=== PATIENT | male | born 1965 | race Caucasian/White ===

== ENCOUNTER 2017-07-21 05:39 | Emergency (ER) | payer BC ==
[2017-07-21] MEDS: morphine 4 MG/ML VIAL IV (05:50)
[2017-07-21] MEDS: ONDANSETRON 4 MG INJ IV (05:50)
[2017-07-21 06:53] LABS: ADD MAN DIFF? NO
[2017-07-21 06:56] LABS: BASOPHILS % 0.2 % (0.0-2.0); EOSINOPHILS # 0.1 10^3/ul (0.0-0.5); EOSINOPHILS % 0.8 % (0.0-7.0); HEMATOCRIT 39.3 % (42.0-52.0); HEMOGLOBIN 13.7 g/dl (14.0-18.0); LYMPHOCYTES # 0.7 10^3/ul (0.8-2.9); LYMPHOCYTES % 8.2 % (15.0-51.0); MEAN CORPUSCULAR HEMOGLOBIN 31.6 pg (29.0-33.0); MEAN CORPUSCULAR HGB CONC 34.9 g/dl (32.0-37.0); MEAN CORPUSCULAR VOLUME 90.6 fl (82.0-101.0); MEAN PLATELET VOLUME 10.2 fl (7.4-10.4); MONOCYTES % 11.1 % (0.0-11.0); NEUTROPHIL # 7.1 10^3/ul (1.6-7.5); NEUTROPHILS % 79.5 % (39.0-77.0); PLATELET COUNT 145 10^3/UL (140-415); RED BLOOD COUNT 4.34 10^6/ul (4.70-6.10); RED CELL DISTRIBUTION WIDTH 11.9 % (11.5-14.5)
[2017-07-21 06:56] LABS: WHITE BLOOD COUNT 8.9 10^3/ul (4.8-10.8)
[2017-07-21 06:59] LABS: ADD UMIC YES; UR ASCORBIC ACID NEGATIVE (NEGATIVE); UR BILIRUBIN (Dip) NEGATIVE (NEGATIVE); UR BLOOD (Dip) 1+ mg/dL (NEGATIVE); UR CLARITY CLEAR (CLEAR); UR COLOR YELLOW (YELLOW); UR GLUCOSE (Dip) NEGATIVE (NEGATIVE); UR KETONES (Dip) NEGATIVE (NEGATIVE); UR LEUKOCYTE ESTERASE (Dip) NEGATIVE Leu/ul (NEGATIVE); UR MUCUS FEW /HPF (NONE SEEN); UR NITRITE (Dip) NEGATIVE (NEGATIVE); UR RBC 2 /HPF (0-5); UR SPECIFIC GRAVITY (Dip) 1.025 (1.003-1.030); UR TOTAL PROTEIN (Dip) NEGATIVE (NEGATIVE); UR UROBILINOGEN (Dip) NEGATIVE (NEGATIVE); UR WBC 0 /HPF (0-5)
[2017-07-21 07:13] LABS: ANION GAP 15 (8-16)
[2017-07-21 07:16] LABS: ALANINE AMINOTRANSFERASE 25 IU/L (13-69); ALBUMIN/GLOBULIN RATIO 1.33; ALKALINE PHOSPHATASE 40 IU/L (42-121); ASPARTATE AMINO TRANSFERASE 18 IU/L (15-46); BILIRUBIN,INDIRECT 1.2 mg/dl (0-1.1); BILIRUBIN,TOTAL 1.2 mg/dl (0.2-1.3); BLOOD UREA NITROGEN 15 mg/dl (7-20); CALCIUM 8.8 mg/dl (8.4-10.2); CARBON DIOXIDE 27 mmol/L (21-31); CHLORIDE 104 mmol/L (97-110); CREATININE 0.98 mg/dl (0.61-1.24); GLUCOSE 100 mg/dl (70-220); LIPASE 93 U/L (23-300); POTASSIUM 4.1 mmol/L (3.5-5.1); SODIUM 142 mmol/L (135-144)
[2017-07-21] MEDS ORDERED: metroNIDAZOLE 500 MG TAB PO (07:30)
[2017-07-21] MEDS: CIPROFLOXACIN 500 MG TAB PO (07:49)
== END 2017-07-21 07:50 | disposition home or self-care (01) ==
LOC: E/R 05:39
DX: K57.32 Diverticulitis of large intestine without perforation or abscess without bleeding (principal)
CPT/HCPCS: 36415; 74176; 80053; 81001; 83690; 85025; 96374; 96375; 99285-25

== ENCOUNTER 2017-07-25 12:08 | Emergency (ER) | payer BC ==
[2017-07-25] MEDS: DIPHTH/TET/ACEL PERTUSS (ADULT) 0.5 ML VIAL IM* (12:36)
[2017-07-25] MEDS: LIDOCAINE 1% (MDV) 10 ML INJ INJ (12:36)
== END 2017-07-25 14:05 | disposition home or self-care (01) ==
LOC: FTE 12:08
DX: S61.411A Laceration without foreign body of right hand, initial encounter (principal); X58.XXXA Exposure to other specified factors, initial encounter; Y92.322 Soccer field as the place of occurrence of the external cause; Z23 Encounter for immunization
CPT/HCPCS: 12002; 90471; 90715; 99283-25

== ENCOUNTER → 2018-09-24 | Outpatient (CLI) | payer BC ==
[2018-09-24 11:00] LABS: WHITE BLOOD COUNT 3.7 10^3/ul (4.8-10.8)
[2018-09-24 11:00] LABS: ADD MAN DIFF? NO; BASOPHILS % 1.1 % (0.0-2.0); EOSINOPHILS # 0.2 10^3/ul (0.0-0.5); EOSINOPHILS % 4.1 % (0.0-7.0); HEMATOCRIT 43.6 % (42.0-52.0); HEMOGLOBIN 14.9 g/dl (14.0-18.0); LYMPHOCYTES # 1.1 10^3/ul (0.8-2.9); LYMPHOCYTES % 31.1 % (15.0-51.0); MEAN CORPUSCULAR HEMOGLOBIN 30.4 pg (29.0-33.0); MEAN CORPUSCULAR HGB CONC 34.2 g/dl (32.0-37.0); MONOCYTE # 0.2 10^3/ul (0.3-0.9); MONOCYTES % 6.3 % (0.0-11.0); NEUTROPHIL # 2.1 10^3/ul (1.6-7.5); NEUTROPHILS % 57.1 % (39.0-77.0); PLATELET COUNT 196 10^3/UL (140-415); RED CELL DISTRIBUTION WIDTH 12.1 % (11.5-14.5)
[2018-09-24 11:04] LABS: ADD UMIC YES; UR ASCORBIC ACID NEGATIVE (NEGATIVE); UR BILIRUBIN (Dip) NEGATIVE (NEGATIVE); UR BLOOD (Dip) 1+ mg/dL (NEGATIVE); UR CLARITY CLEAR (CLEAR); UR COLOR YELLOW (YELLOW); UR GLUCOSE (Dip) NEGATIVE (NEGATIVE); UR KETONES (Dip) NEGATIVE (NEGATIVE); UR LEUKOCYTE ESTERASE (Dip) NEGATIVE Leu/ul (NEGATIVE); UR NITRITE (Dip) NEGATIVE (NEGATIVE); UR RBC 1 /HPF (0-5); UR SPECIFIC GRAVITY (Dip) 1.019 (1.003-1.030); UR TOTAL PROTEIN (Dip) NEGATIVE (NEGATIVE); UR UROBILINOGEN (Dip) NEGATIVE (NEGATIVE); UR WBC 0 /HPF (0-5)
[2018-09-24 11:25] LABS: IRON 150 ug/dl (35-150)
[2018-09-24 11:34] LABS: % IRON SATURATION 50 % SAT (22-52); TOTAL IRON BINDING CAPACITY 301 ug/dl (241-421)
[2018-09-24 11:48] LABS: ALANINE AMINOTRANSFERASE 21 IU/L (13-69); ALBUMIN 4.6 g/dl (3.3-4.9); ALBUMIN/GLOBULIN RATIO 1.39; ALKALINE PHOSPHATASE 45 IU/L (42-121); ANION GAP 9 (5-13); ASPARTATE AMINO TRANSFERASE 24 IU/L (15-46); BILIRUBIN,INDIRECT 0.8 mg/dl (0-1.1); BILIRUBIN,TOTAL 0.8 mg/dl (0.2-1.3); BLOOD UREA NITROGEN 17 mg/dl (7-20); CALCIUM 9.7 mg/dl (8.4-10.2); CARBON DIOXIDE 27 mmol/L (21-31); CHLORIDE 107 mmol/L (97-110); CHOL/HDL RATIO 2.9 RATIO; CHOLESTEROL 163 mg/dl (100-200); CREATININE 1.04 mg/dl (0.61-1.24); Estimated GFR > 60 mL/min (>60); GLUCOSE 87 mg/dl (70-220); HDL CHOLESTEROL 56 mg/dl (28-71); LDL CHOLESTEROL,CALCULATED 83 mg/dl; POTASSIUM 4.3 mmol/L (3.5-5.1); SODIUM 143 mmol/L (135-144); TOTAL PROTEIN 7.9 g/dl (6.1-8.1); TRIGLYCERIDES 121 mg/dl (0-149)
[2018-09-24 11:51] LABS: C-REACTIVE PROTEIN HIGH SENSI 0.05 mg/dl (0.00-0.74)
[2018-09-24 12:01] LABS: HEMOGLOBIN A1C 4.7 % (0-5.9)
[2018-09-24 12:18] LABS: T4 (THYROXINE) 7.6 ug/dl (5.5-11.0)
[2018-09-24 12:32] LABS: PROSTATE SPECIFIC ANTIGEN 2.4 ng/ml (0.0-4.0)
== END | disposition home or self-care (01) ==
LOC: LAB 10:09
DX: Z00.00 Encounter for general adult medical examination without abnormal findings (principal)
CPT/HCPCS: 80053; 80061; 81001; 82306; 83036; 83540; 84153; 84154; 84436; 84443; 84480; 85025; 86140